=== PATIENT | male | born 1980 | race Caucasian/White ===

== ENCOUNTER 2019-07-28 19:38 | Emergency (ER) | payer OTHER ==
[~2019-07-28] VITALS: Ht 180.3 cm; Wt 88.9 kg
[2019-07-28] MEDS ORDERED: CEphaleXIN 500 MG CAPSULE PO ONE (20:30)
[2019-07-28] MEDS ORDERED: DOXYCYCLINE HYCLATE 100 MG TABLET PO ONE (20:30)
[2019-07-28] MEDS ORDERED: CEphaleXIN 500 MG CAPSULE ONE (20:34)
[2019-07-28] MEDS ORDERED: DOXYCYCLINE HYCLATE 100 MG TABLET ONE (20:34)
[2019-07-28 20:45] VITALS: BP 115/92
--- NOTE | 2019-07-28 20:45 | NUR ---
Patient discharged to home in stable conditon. Written and verbal after care instructions given. Patient verbalizes understanding of instructions. Patient ambulated with stable gait.
== END 2019-07-28 20:46 | disposition home or self-care (01) ==
LOC: ER 19:38
DX: R21 Rash and other nonspecific skin eruption (principal); Z87.891 Personal history of nicotine dependence
CPT/HCPCS: A4663